=== PATIENT | female | born 1975 | race Caucasian/White ===

== ENCOUNTER 2017-04-14 02:27 | Outpatient (CLI) | payer BC ==
[~2017-04-14 02:27] MED LIST: ONDA4TAB6 PO; PHEN-873 PO
== END 2017-04-14 23:59 | disposition home or self-care (01) ==
LOC: DIABETIC 02:27
PROVIDERS: ATTEND Specialist
DX: E11.9 Type 2 diabetes mellitus without complications (principal)
CPT/HCPCS: G0108

== ENCOUNTER 2017-07-18 02:38 | Outpatient (CLI) | payer BC | END 2017-07-18 23:59 | disposition home or self-care (01) | LOC: DIABETIC 02:38 | PROVIDERS: ATTEND Specialist | DX: E11.9 Type 2 diabetes mellitus without complications (principal) | CPT/HCPCS: G0108 ==

== ENCOUNTER 2017-10-17 01:28 | Outpatient (CLI) | payer BC | END 2017-10-17 23:59 | disposition home or self-care (01) | LOC: DIABETIC 01:28 | PROVIDERS: ATTEND Specialist | DX: E11.9 Type 2 diabetes mellitus without complications (principal) | CPT/HCPCS: G0108 ==

== ENCOUNTER 2018-01-09 02:23 | Outpatient (CLI) | payer BC ==
[~2018-01-09 02:23] MED LIST changes: +PHEN-786 PO; -PHEN-873 PO
== END 2018-01-09 23:59 | disposition home or self-care (01) ==
LOC: DIABETIC 02:23
PROVIDERS: ATTEND Specialist
DX: E11.9 Type 2 diabetes mellitus without complications (principal); I10 Essential (primary) hypertension; Z88.0 Allergy status to penicillin
CPT/HCPCS: G0108

== ENCOUNTER 2018-05-10 03:31 | Outpatient (CLI) | payer BC | END 2018-05-10 23:59 | disposition home or self-care (01) | LOC: DIABETIC 03:31 | PROVIDERS: ATTEND Specialist | DX: E11.9 Type 2 diabetes mellitus without complications (principal); I10 Essential (primary) hypertension; Z88.0 Allergy status to penicillin | CPT/HCPCS: G0108 ==

== ENCOUNTER 2018-06-21 01:41 | Outpatient (CLI) | payer BC | END 2018-06-21 23:59 | disposition home or self-care (01) | LOC: DIABETIC 01:41 | PROVIDERS: ATTEND Specialist | DX: E11.65 Type 2 diabetes mellitus with hyperglycemia (principal); Z88.0 Allergy status to penicillin; Z79.899 Other long term (current) drug therapy | CPT/HCPCS: G0108 ==

== ENCOUNTER 2018-08-08 02:35 | Outpatient (CLI) | payer BC | END 2018-08-08 23:59 | disposition home or self-care (01) | LOC: DIABETIC 02:35 | PROVIDERS: ATTEND Specialist | DX: E11.65 Type 2 diabetes mellitus with hyperglycemia (principal); I10 Essential (primary) hypertension; Z88.0 Allergy status to penicillin; Z79.84 Long term (current) use of oral hypoglycemic drugs; Z79.4 Long term (current) use of insulin | CPT/HCPCS: G0108 ==

== ENCOUNTER 2018-12-06 04:47 | Outpatient (CLI) | payer BC | END 2018-12-06 23:59 | disposition home or self-care (01) | LOC: DIABETIC 04:47 | PROVIDERS: ATTEND Specialist | DX: E11.65 Type 2 diabetes mellitus with hyperglycemia (principal); I10 Essential (primary) hypertension; Z88.0 Allergy status to penicillin; Z79.899 Other long term (current) drug therapy; Z79.84 Long term (current) use of oral hypoglycemic drugs | CPT/HCPCS: G0108 ==

== ENCOUNTER 2020-08-17 13:07 | Emergency (ER) | payer BC ==
[~2020-08-17] VITALS: Ht 165.1 cm; Wt 84.4 kg
[2020-08-17 14:44] LABS: URINE HCG NEGATIVE (NEG)
[2020-08-17 14:45] LABS: BASOPHILS # (AUTO) 0.1 X10'3 (0-0.2); BASOPHILS % (AUTO) 0.6 % (0-1); EOSINOPHILS # (AUTO) 0.1 X10'3 (0-0.9); HEMATOCRIT 37.6 % (35.0-45.0); HEMOGLOBIN 12.8 g/dl (12.0-16.0); LYMPHOCYTES # (AUTO) 1.6 X10'3 (1.1-4.8); MEAN CORPUSCULAR HEMOGLOBIN 32.8 PG (27.0-31.0); MEAN CORPUSCULAR VOLUME 96.3 FL (78-98); MEAN PLATELET VOLUME 7.5 FL (7.4-10.4); MONOCYTES # (AUTO) 0.7 X10'3 (0-0.9); NEUTROPHILS # (AUTO) 5.8 X10'3 (1.8-7.7); NEUTROPHILS % (AUTO) 70.4 % (42-75); PLATELET COUNT 294 X10'3 (140-440); RED BLOOD COUNT 3.91 X10'6 (4.20-5.60); RED CELL DISTRIBUTION WIDTH 12.6 % (11.5-14.5); WHITE BLOOD COUNT 8.2 X10'3 (4.5-11.0)
[2020-08-17 14:53] LABS: CLARITY,URINE CLOUDY (Clear); COLOR,URINE STRAW (Yellow); GLUCOSE, URINE >=1000 mg/dl (Neg); KETONES,URINE TRACE mg/dl (Neg); LEUKOCYTE ESTERASE ,URINE NEGATIVE (Neg); NITRITES, URINE NEGATIVE (Neg); OCCULT BLOOD,URINE SMALL (Neg); PH,URINE 5.5 (4.8-8.0); PROTEIN,URINE 30 mg/dl (Neg); UROBILINOGEN,URINE 0.2 E.U/dL (0.2-1.0)
[2020-08-17 14:54] LABS: UA COLLECTION TYPE CLN CATCH MIDSTREAM
[2020-08-17 14:59] LABS: ALANINE AMINOTRANSFERASE 35 U/L (12-78); ALBUMIN 3.1 G/DL (3.4-5.0); ALBUMIN/GLOBULIN RATIO 0.7 (1.1-1.5); ALKALINE PHOSPHATASE 43 IU/L (46-116); ANION GAP 17 (8-16); ASPARTATE AMINO TRANSFERASE 36 U/L (10-37); BILIRUBIN,TOTAL 0.6 MG/DL (0.1-1.0); BLOOD UREA NITROGEN 29 MG/DL (7-18); BUN/CREATININE RATIO 10.1 (6.6-38.0); CALCIUM 9.5 MG/DL (8.5-10.1); CHLORIDE 96 MMOL/L (99-107); CREATININE 2.87 MG/DL (0.40-0.90); GLUCOSE 298 MG/DL (70-104); LIPASE 137 U/L (73-393); POTASSIUM 3.8 MMOL/L (3.5-5.1); SODIUM 133 MMOL/L (135-145); TOTAL CARBON DIOXIDE 19.8 MMOL/L (24-32); TOTAL PROTEIN 7.8 G/DL (6.4-8.2); eGFR 18 ML/MIN
[2020-08-17 15:11] LABS: SQUAMOUS EPITHELIAL CELL,UR MODERATE /LPF (FEW)
[2020-08-17 15:14] LABS: BACTERIA,URINE FEW /HPF (Neg); WAXY CASTS,URINE 0-3 /LPF (NEGATIVE); WBC,URINE 0-4 /HPF (0-4)
[2020-08-17 15:15] LABS: AMORPHOUS URATES 4+; MUCUS STRANDS FEW /LPF (Neg); RBC,URINE NONE SEEN /HPF (0-2)
[2020-08-17] MEDS ORDERED: normal saline 1000ML IV soln IVB ONE (16:00)
[2020-08-17] MEDS ORDERED: famotidine/PF 10 mg/ml inj IV ONE (16:55)
[2020-08-17] MEDS ORDERED: sucralfate 1gm/10ml UD suspension PO STA (16:56)
[2020-08-17] MEDS ORDERED: mag hydrox/Alum hydrox/simeth 30ml oral suspension PO ONE (17:00)
[2020-08-17] MEDS ORDERED: LIDOcaine Viscous 15ml cup MM ONE (17:00)
[2020-08-17 18:31] VITALS: BP 142/96
== END 2020-08-17 18:43 | disposition home or self-care (01) ==
LOC: ER 13:08
DX: N17.9 Acute kidney failure, unspecified (principal); E11.65 Type 2 diabetes mellitus with hyperglycemia; R10.13 Epigastric pain; E78.00 Pure hypercholesterolemia, unspecified; I10 Essential (primary) hypertension; Z79.4 Long term (current) use of insulin; Z87.440 Personal history of urinary (tract) infections; Z79.899 Other long term (current) drug therapy; Z88.0 Allergy status to penicillin; Z90.710 Acquired absence of both cervix and uterus
CPT/HCPCS: 36415; 71045; 80053; 81001; 81025; 82948; 83690; 84484; 85025; 93005; 93975; 96361; 96374; 99285; J3490; J7030

== ENCOUNTER 2020-08-19 11:42 | Inpatient (IN) | payer BC ==
[~2020-08-19] VITALS: Ht 165.1 cm; Wt 85.5 kg
[2020-08-19 12:34] LABS: ALANINE AMINOTRANSFERASE 23 U/L (12-78); ALBUMIN 2.9 G/DL (3.4-5.0); ALBUMIN/GLOBULIN RATIO 0.7 (1.1-1.5); ALKALINE PHOSPHATASE 43 IU/L (46-116); ANION GAP 17 (8-16); ASPARTATE AMINO TRANSFERASE 31 U/L (10-37); BILIRUBIN,TOTAL 0.5 MG/DL (0.1-1.0); BLOOD UREA NITROGEN 29 MG/DL (7-18); BUN/CREATININE RATIO 7.9 (6.6-38.0); CALCIUM 9.5 MG/DL (8.5-10.1); CHLORIDE 101 MMOL/L (99-107); CREATININE 3.65 MG/DL (0.40-0.90); GLUCOSE 285 MG/DL (70-104); POTASSIUM 3.8 MMOL/L (3.5-5.1); SODIUM 137 MMOL/L (135-145); TOTAL CARBON DIOXIDE 18.7 MMOL/L (24-32); TOTAL PROTEIN 7.3 G/DL (6.4-8.2); eGFR 13 ML/MIN
[2020-08-19 12:44] LABS: BASOPHILS % (AUTO) 0.5 % (0-1); EOSINOPHILS # (AUTO) 0.1 X10'3 (0-0.9); HEMATOCRIT 35.9 % (35.0-45.0); HEMOGLOBIN 12.4 g/dl (12.0-16.0); LYMPHOCYTES # (AUTO) 1.6 X10'3 (1.1-4.8); LYMPHOCYTES % (AUTO) 21.8 % (21-51); MEAN CORPUSCULAR HEMOGLOBIN 32.9 PG (27.0-31.0); MEAN CORPUSCULAR HGB CONC 34.4 g/dL (33.0-36.5); MEAN CORPUSCULAR VOLUME 95.7 FL (78-98); MEAN PLATELET VOLUME 7.7 FL (7.4-10.4); MONOCYTES # (AUTO) 0.8 X10'3 (0-0.9); NEUTROPHILS # (AUTO) 4.8 X10'3 (1.8-7.7); NEUTROPHILS % (AUTO) 65.7 % (42-75); PLATELET COUNT 315 X10'3 (140-440); RED BLOOD COUNT 3.75 X10'6 (4.20-5.60); RED CELL DISTRIBUTION WIDTH 12.5 % (11.5-14.5); WHITE BLOOD COUNT 7.3 X10'3 (4.5-11.0)
[2020-08-19] MEDS ORDERED: normal saline 1000ML IV soln IVB ONE (13:55)
[2020-08-19] MEDS ORDERED: insulin regular, human U-100 3ml vial - multi-dose IV ONE (13:55)
[2020-08-19 14:25] LABS: URINE HCG NEGATIVE (NEG)
[2020-08-19 14:27] LABS: CLARITY,URINE SLIGHTLY CLOUDY (Clear); COLOR,URINE STRAW (Yellow); GLUCOSE, URINE >=1000 mg/dl (Neg); KETONES,URINE NEGATIVE (Neg); LEUKOCYTE ESTERASE ,URINE NEGATIVE (Neg); NITRITES, URINE NEGATIVE (Neg); OCCULT BLOOD,URINE SMALL (Neg); PH,URINE 5.5 (4.8-8.0); PROTEIN,URINE 30 mg/dl (Neg); UROBILINOGEN,URINE 0.2 E.U/dL (0.2-1.0)
[2020-08-19 14:30] LABS: UA COLLECTION TYPE VOIDED
[2020-08-19 14:34] LABS: C-REACTIVE PROTEIN 1.4 MG/DL (0.0-0.5); MAGNESIUM 2.1 MG/DL (1.5-2.4); PHOSPHORUS 4.9 MG/DL (2.3-4.5)
[2020-08-19 14:40] LABS: WBC,URINE 0-4 /HPF (0-4)
[2020-08-19 14:41] LABS: BACTERIA,URINE 1+ /HPF (Neg); RBC,URINE 0-2 /HPF (0-2)
[2020-08-19 14:42] LABS: SQUAMOUS EPITHELIAL CELL,UR MODERATE /LPF (FEW)
[2020-08-19 14:45] LABS: AMORPHOUS URATES 1+
[2020-08-19] MEDS ORDERED: magnesium Cl slow-release 64mg tablet PO PRN (16:45)
[2020-08-19] MEDS ORDERED: magnesium 2GM in 50ml NS 50 ML IV PRN (16:45)
[2020-08-19] MEDS: normal saline 1000ml 1,000 ML IV SCH (16:45)
[2020-08-19] MEDS ORDERED: ondansetron/PF 4mg/2ml inj IV PRN (16:45)
[2020-08-19] MEDS ORDERED: potassium Cl 40MEQ/1/2NS 520ml 520 ML IV PRN ×2 (16:45)
[2020-08-19] MEDS ORDERED: magnesium 4gm in 100ml NS 100 ML IV PRN (16:45)
[2020-08-19] MEDS ORDERED: acetaminophen 325mg tablet PO PRN (16:45)
[2020-08-19] MEDS ORDERED: potassium Cl 20 mEq SR tablet PO PRN (16:45)
[2020-08-19] MEDS ORDERED: ROSU40TA PO (17:09)
[2020-08-19] MEDS ORDERED: INSU300I3 SUBCUT (17:09)
[2020-08-19] MEDS ORDERED: DULA1.5P SQ (17:09)
[2020-08-19] MEDS ORDERED: LISI-790 PO (17:09)
[2020-08-19] MEDS ORDERED: NORE1TAB28 PO (17:09)
[2020-08-19] MEDS ORDERED: AMA1T PO (17:09)
[2020-08-19] MEDS ORDERED: DAPA10TA PO (17:09)
[2020-08-19] MEDS ORDERED: GABA-530 PO (17:09)
[2020-08-19] MEDS ORDERED: dextrose 50%-water 50ml dispensing syringe IV PRN ×2 (17:20)
[2020-08-19] MEDS ORDERED: glucagon, human recombinant 1mg kit SUBCUT PRN (17:20)
[2020-08-19] MEDS ORDERED: dextrose ORAL solution 15 GM/59 ML bottle PO PRN ×2 (17:20)
[2020-08-19] MEDS ORDERED: MESSAGE TO PHARMACY PO ONE (17:20)
[2020-08-19 17:45] LABS: HEMOGLOBIN A1C 7.1 % (4.5-6.2)
[2020-08-19 17:45] LABS: LACTATE DEHYDROGENASE 188 U/L (81-234)
[2020-08-19 18:04] LABS: RHEUM FACTOR QUAL REFLEX TITER NEGATIVE (Neg)
[2020-08-19 19:29] LABS: UA EOSINOPHILS NO EOS /HPF
[2020-08-19] MEDS: K and/or MAG REPLACEMENT MC SCH (20:00)
--- NOTE | 2020-08-19 20:48 | NUR ---
Patient in room ED [id number]. I have received report from Jordon KING and had the opportunity to ask questions and assume patient care.
[2020-08-19 21:15] VITALS: BP 132/78
[2020-08-19] MEDS: insulin glargine (Lantus) pen - multi-dose SQ SCH (22:05)
[2020-08-19] MEDS ORDERED: diphenhydrAMINE 25mg capsule PO PRN (22:45)
[2020-08-20] MEDS: normal saline 1000ml 1,000 ML IV SCH ×3 (02:45→19:39)
--- NOTE | 2020-08-20 06:27 | NUR ---
Problems reprioritized. Patient report given, questions answered & plan of care reviewed with Aurora KING.
[2020-08-20 06:46] VITALS: BP 117/71
--- NOTE | 2020-08-20 07:23 | NUR ---
Patient in room ORTHO 4015. I have received report from terrell mendoza and had the opportunity to ask questions and assume patient care.
[2020-08-20 07:39] LABS: BASOPHILS % (AUTO) 0.6 % (0-1); EOSINOPHILS # (AUTO) 0.1 X10'3 (0-0.9); EOSINOPHILS % (AUTO) 1.8 % (0-6); HEMATOCRIT 31.5 % (35.0-45.0); HEMOGLOBIN 11.1 g/dl (12.0-16.0); LYMPHOCYTES % (AUTO) 28.4 % (21-51); MEAN CORPUSCULAR HEMOGLOBIN 33.9 PG (27.0-31.0); MEAN CORPUSCULAR HGB CONC 35.3 g/dL (33.0-36.5); MEAN CORPUSCULAR VOLUME 96.1 FL (78-98); MEAN PLATELET VOLUME 7.6 FL (7.4-10.4); MONOCYTES # (AUTO) 0.7 X10'3 (0-0.9); MONOCYTES % (AUTO) 9.7 % (2-12); NEUTROPHILS # (AUTO) 4.1 X10'3 (1.8-7.7); NEUTROPHILS % (AUTO) 59.5 % (42-75); PLATELET COUNT 272 X10'3 (140-440); RED BLOOD COUNT 3.28 X10'6 (4.20-5.60); RED CELL DISTRIBUTION WIDTH 12.3 % (11.5-14.5); WHITE BLOOD COUNT 6.9 X10'3 (4.5-11.0)
[2020-08-20] MEDS: atorvastatin 20mg tablet PO SCH (07:53)
[2020-08-20 07:56] LABS: ALBUMIN 2.4 G/DL (3.4-5.0); ANION GAP 13 (8-16); BLOOD UREA NITROGEN 29 MG/DL (7-18); BUN/CREATININE RATIO 8.3 (6.6-38.0); CALCIUM 8.6 MG/DL (8.5-10.1); CHLORIDE 106 MMOL/L (99-107); GLUCOSE 165 MG/DL (70-104); LACTATE DEHYDROGENASE 149 U/L (81-234); POTASSIUM 3.6 MMOL/L (3.5-5.1); SODIUM 139 MMOL/L (135-145); TOTAL CARBON DIOXIDE 19.9 MMOL/L (24-32); eGFR 14 ML/MIN
[2020-08-20] MEDS: K and/or MAG REPLACEMENT MC SCH ×2 (08:00→19:33)
[2020-08-20 08:10] VITALS: BP 120/62
[2020-08-20 08:40] LABS: RHEUM FACTOR QUAL REFLEX TITER NEGATIVE (Neg)
[2020-08-20] MEDS: insulin Lispro (HumaLOG) vial - multi-dose SQ SCH ×3 (08:47→19:38)
[2020-08-20 10:00] VITALS: BP 130/78
[2020-08-20] MEDS ORDERED: LIDOcaine 2% 10ml TOPICAL JELLY (Urojet) TP ONE (12:20)
--- NOTE | 2020-08-20 15:24 | NUR ---
Malnutrition/DM Consults: Pt admit DX DEB and hyperglycemia GLU 285 hx T2DM A1C 7.1; pt told to come in to ER by optical effects camera operator for elevated GLU per EMR. Pt takes farxiga, trulicity, glimepiride, and trujeo at home and was following DM diet as well as taking meds per Rx KILN PULLER per ER note. Pt seen by RD reports follows optical effects camera operator and PCP regularly, used to see CDE at [facility] prior to program closing, takes meds per Rx, and has no questions/concerns regarding DM diet guidelines at this time. Written DM ed w/ RD contact information given to pt. RD encouraged pt to contact dietitian's office if further questions/concerns. Pt appears WD/WN, has normal strength, no edema/wounds, and PO 100% first meal this admit meeting needs. Does not meet minimum malnutrition criteria at this time. Addendum: 08/20/20 at [address] Amended: Links added.
[2020-08-20 18:00] VITALS: BP 131/84
--- NOTE | 2020-08-20 18:31 | NUR ---
Problems reprioritized. Patient report given, questions answered & plan of care reviewed with LESLIE KING.
--- NOTE | 2020-08-20 18:45 | NUR ---
Patient in room ORTHO 4015. I have received report from Aurora KING and had the opportunity to ask questions and assume patient care.
[2020-08-20 22:00] VITALS: BP 114/72
[2020-08-20] MEDS: LORazepam 1 MG tablet PO PRN (22:00)
[2020-08-20] MEDS: insulin glargine (Lantus) pen - multi-dose SQ SCH (22:04)
[2020-08-21] MEDS: normal saline 1000ml 1,000 ML IV SCH ×2 (05:22→15:58)
[2020-08-21 06:00] VITALS: BP 120/79
--- NOTE | 2020-08-21 06:14 | NUR ---
Problems reprioritized. Patient report given, questions answered & plan of care reviewed with Faustina KING and Lara KING.
[2020-08-21 07:58] LABS: BASOPHILS % (AUTO) 0.5 % (0-1); EOSINOPHILS # (AUTO) 0.1 X10'3 (0-0.9); EOSINOPHILS % (AUTO) 1.9 % (0-6); HEMATOCRIT 31.8 % (35.0-45.0); HEMOGLOBIN 10.9 g/dl (12.0-16.0); LYMPHOCYTES # (AUTO) 1.4 X10'3 (1.1-4.8); LYMPHOCYTES % (AUTO) 25.3 % (21-51); MEAN CORPUSCULAR HGB CONC 34.5 g/dL (33.0-36.5); MEAN CORPUSCULAR VOLUME 95.8 FL (78-98); MEAN PLATELET VOLUME 7.7 FL (7.4-10.4); MONOCYTES # (AUTO) 0.6 X10'3 (0-0.9); MONOCYTES % (AUTO) 10.6 % (2-12); NEUTROPHILS # (AUTO) 3.5 X10'3 (1.8-7.7); NEUTROPHILS % (AUTO) 61.7 % (42-75); PLATELET COUNT 264 X10'3 (140-440); RED BLOOD COUNT 3.31 X10'6 (4.20-5.60); RED CELL DISTRIBUTION WIDTH 12.6 % (11.5-14.5); WHITE BLOOD COUNT 5.6 X10'3 (4.5-11.0)
[2020-08-21] MEDS: K and/or MAG REPLACEMENT MC SCH ×2 (08:00→19:20)
[2020-08-21 08:08] LABS: ALBUMIN 2.4 G/DL (3.4-5.0); ANION GAP 12 (8-16); BLOOD UREA NITROGEN 29 MG/DL (7-18); BUN/CREATININE RATIO 8.5 (6.6-38.0); CALCIUM 8.5 MG/DL (8.5-10.1); CHLORIDE 108 MMOL/L (99-107); CREATININE 3.43 MG/DL (0.40-0.90); GLUCOSE 159 MG/DL (70-104); MAGNESIUM 1.9 MG/DL (1.5-2.4); POTASSIUM 3.6 MMOL/L (3.5-5.1); SODIUM 142 MMOL/L (135-145); TOTAL CARBON DIOXIDE 22.4 MMOL/L (24-32); eGFR 14 ML/MIN
[2020-08-21] MEDS: atorvastatin 20mg tablet PO SCH (08:10)
[2020-08-21 08:15] VITALS: BP 134/83
[2020-08-21] MEDS: insulin Lispro (HumaLOG) vial - multi-dose SQ SCH ×4 (08:17→21:33)
[2020-08-21 09:23] LABS: HBSAG SCREEN Negative (Negative); HEPATITIS C ANTIBODY <0.1 s/co ratio (0.0-0.9)
[2020-08-21 10:38] VITALS: BP 138/95
[2020-08-21 18:00] VITALS: BP 144/92
--- NOTE | 2020-08-21 18:45 | NUR ---
Patient in room ORTHO 4015. I have received report from Faustina KING and had the opportunity to ask questions and assume patient care.
[2020-08-21 20:00] VITALS: BP_SYST 123; BP_SYST 128; BP_DIAS 73; BP_DIAS 84; BP_DIAS 90
[2020-08-21] MEDS: LORazepam 1 MG tablet PO PRN (21:28)
[2020-08-21] MEDS: insulin glargine (Lantus) pen - multi-dose SQ SCH (21:32)
[2020-08-21 22:00] VITALS: BP 125/78
[2020-08-22] MEDS: normal saline 1000ml 1,000 ML IV SCH ×3 (04:59→19:20)
[2020-08-22 06:00] VITALS: BP 110/71
--- NOTE | 2020-08-22 06:37 | NUR ---
Problems reprioritized. Patient report given, questions answered & plan of care reviewed with Faustina KING.
[2020-08-22 06:49] LABS: BASOPHILS % (AUTO) 0.4 % (0-1); EOSINOPHILS # (AUTO) 0.1 X10'3 (0-0.9); EOSINOPHILS % (AUTO) 1.9 % (0-6); HEMATOCRIT 32.4 % (35.0-45.0); HEMOGLOBIN 11.5 g/dl (12.0-16.0); LYMPHOCYTES # (AUTO) 1.9 X10'3 (1.1-4.8); LYMPHOCYTES % (AUTO) 30.3 % (21-51); MEAN CORPUSCULAR HEMOGLOBIN 34.2 PG (27.0-31.0); MEAN CORPUSCULAR HGB CONC 35.3 g/dL (33.0-36.5); MEAN CORPUSCULAR VOLUME 96.9 FL (78-98); MEAN PLATELET VOLUME 7.8 FL (7.4-10.4); MONOCYTES # (AUTO) 0.6 X10'3 (0-0.9); MONOCYTES % (AUTO) 9.8 % (2-12); NEUTROPHILS # (AUTO) 3.6 X10'3 (1.8-7.7); NEUTROPHILS % (AUTO) 57.6 % (42-75); PLATELET COUNT 310 X10'3 (140-440); RED BLOOD COUNT 3.35 X10'6 (4.20-5.60); WHITE BLOOD COUNT 6.2 X10'3 (4.5-11.0)
[2020-08-22 06:56] LABS: ALBUMIN 2.5 G/DL (3.4-5.0); ANION GAP 12 (8-16); BLOOD UREA NITROGEN 27 MG/DL (7-18); BUN/CREATININE RATIO 8.8 (6.6-38.0); CALCIUM 8.6 MG/DL (8.5-10.1); CHLORIDE 107 MMOL/L (99-107); CREATININE 3.06 MG/DL (0.40-0.90); GLUCOSE 168 MG/DL (70-104); MAGNESIUM 1.7 MG/DL (1.5-2.4); POTASSIUM 3.4 MMOL/L (3.5-5.1); SODIUM 141 MMOL/L (135-145); TOTAL CARBON DIOXIDE 21.9 MMOL/L (24-32); eGFR 16 ML/MIN
[2020-08-22] MEDS: atorvastatin 20mg tablet PO SCH (07:59)
[2020-08-22] MEDS: K and/or MAG REPLACEMENT MC SCH ×2 (08:00→20:59)
[2020-08-22] MEDS: insulin Lispro (HumaLOG) vial - multi-dose SQ SCH ×3 (08:05→18:47)
[2020-08-22 10:00] VITALS: BP_SYST 138; BP_SYST 140; BP_DIAS 70; BP_DIAS 73; BP_DIAS 78; BP_DIAS 97
[2020-08-22] MEDS: potassium Cl 20 mEq SR tablet PO PRN ×2 (12:13→16:15)
[2020-08-22 18:00] VITALS: BP 149/96
[2020-08-22] MEDS ORDERED: potassium Cl 40MEQ/1/2NS 520ml 520 ML IV PRN (19:50)
[2020-08-22] MEDS ORDERED: potassium Cl 20 mEq SR tablet PO PRN ×2 (19:50)
[2020-08-22] MEDS ORDERED: magnesium Cl slow-release 64mg tablet PO PRN (19:50)
[2020-08-22] MEDS ORDERED: magnesium 4gm in 100ml NS 100 ML IV PRN (19:50)
[2020-08-22 20:00] VITALS: BP_SYST 137; BP_SYST 146; BP_SYST 153; BP_DIAS 105; BP_DIAS 85; BP_DIAS 95
[2020-08-22] MEDS: insulin glargine (Lantus) pen - multi-dose SQ SCH (21:09)
[2020-08-22] MEDS: LORazepam 1 MG tablet PO PRN (21:10)
[2020-08-22 22:00] VITALS: BP 137/85
[2020-08-23] MEDS: normal saline 1000ml 1,000 ML IV SCH ×2 (01:20→07:46)
[2020-08-23 06:44] LABS: BASOPHILS % (AUTO) 0.5 % (0-1); EOSINOPHILS # (AUTO) 0.1 X10'3 (0-0.9); EOSINOPHILS % (AUTO) 1.7 % (0-6); HEMOGLOBIN 9.9 g/dl (12.0-16.0); LYMPHOCYTES # (AUTO) 1.6 X10'3 (1.1-4.8); LYMPHOCYTES % (AUTO) 26.1 % (21-51); MEAN CORPUSCULAR HEMOGLOBIN 33.4 PG (27.0-31.0); MEAN CORPUSCULAR HGB CONC 34.3 g/dL (33.0-36.5); MEAN CORPUSCULAR VOLUME 97.4 FL (78-98); MEAN PLATELET VOLUME 7.8 FL (7.4-10.4); MONOCYTES # (AUTO) 0.8 X10'3 (0-0.9); MONOCYTES % (AUTO) 11.9 % (2-12); NEUTROPHILS # (AUTO) 3.8 X10'3 (1.8-7.7); NEUTROPHILS % (AUTO) 59.8 % (42-75); PLATELET COUNT 285 X10'3 (140-440); RED BLOOD COUNT 2.98 X10'6 (4.20-5.60); RED CELL DISTRIBUTION WIDTH 12.2 % (11.5-14.5); WHITE BLOOD COUNT 6.3 X10'3 (4.5-11.0)
[2020-08-23 06:46] LABS: ALBUMIN 2.2 G/DL (3.4-5.0); ANION GAP 11 (8-16); BLOOD UREA NITROGEN 22 MG/DL (7-18); BUN/CREATININE RATIO 9.1 (6.6-38.0); CALCIUM 7.6 MG/DL (8.5-10.1); CHLORIDE 110 MMOL/L (99-107); CREATININE 2.43 MG/DL (0.40-0.90); GLUCOSE 169 MG/DL (70-104); MAGNESIUM 1.5 MG/DL (1.5-2.4); POTASSIUM 3.7 MMOL/L (3.5-5.1); SODIUM 142 MMOL/L (135-145); TOTAL CARBON DIOXIDE 20.9 MMOL/L (24-32); eGFR 21 ML/MIN
--- NOTE | 2020-08-23 06:52 | NUR ---
Patient in room ORTHO 4015. I have received report from Marlen KING and had the opportunity to ask questions and assume patient care.
[2020-08-23] MEDS: atorvastatin 20mg tablet PO SCH (07:42)
[2020-08-23] MEDS: K and/or MAG REPLACEMENT MC SCH (08:04)
[2020-08-23] MEDS: insulin Lispro (HumaLOG) vial - multi-dose SQ SCH (08:47)
--- NOTE | 2020-08-23 11:28 | NUR ---
Charge nurse Gladys went over discharge instructions with this patient.
== END 2020-08-23 09:20 | disposition home or self-care (01) | DRG 637 ==
LOC: ER 11:42 → ED HOLD 16:41 → ORTHO 4S 21:00
PROVIDERS: ADMIT Internal Medicine; ATTEND Internal Medicine
DX: E11.65 Type 2 diabetes mellitus with hyperglycemia (principal); N17.0 Acute kidney failure with tubular necrosis; E87.2 Acidosis; I10 Essential (primary) hypertension; E78.5 Hyperlipidemia, unspecified; E78.00 Pure hypercholesterolemia, unspecified; G62.9 Polyneuropathy, unspecified; E66.9 Obesity, unspecified; Z88.0 Allergy status to penicillin; Z79.899 Other long term (current) drug therapy; Z90.710 Acquired absence of both cervix and uterus; Z68.31 Body mass index [BMI] 31.0-31.9, adult; Z87.440 Personal history of urinary (tract) infections
CPT/HCPCS: 36415; 76770; 80048; 80053; 81001; 81025; 82570; 82948; 83036; 83615; 83735; 84100; 84145; 84156; 84300; 85025; 85651; 86038; 86060; 86140; 86160; 86430; 86592; 86803; 87081; 87207; 87340; 96374; 99285; G0378; J1815; J7030; Q0163

== ENCOUNTER 2021-04-27 07:36 | Emergency (ER) | payer BC ==
[~2021-04-27] VITALS: Ht 165.1 cm; Wt 100.0 kg
[~2021-04-27 07:36] MED LIST changes: +AMA1T PO; +NORE1TAB28 PO; -ONDA4TAB6 PO; -PHEN-786 PO; +ROSU40TA PO
[2021-04-27] MEDS ORDERED: normal saline 1000ML IV soln IVB ONE (07:50)
[2021-04-27] MEDS ORDERED: morphine 4 MG/ML inj SYRINge IV PRN (07:50)
[2021-04-27] MEDS ORDERED: ondansetron/PF 4mg/2ml inj IV ONE (07:50)
[2021-04-27 08:21] LABS: URINE HCG NEGATIVE (NEG)
[2021-04-27 08:22] LABS: BASOPHILS % (AUTO) 0.5 % (0-1); EOSINOPHILS # (AUTO) 0.1 X10'3 (0-0.9); EOSINOPHILS % (AUTO) 1.7 % (0-6); HEMATOCRIT 40.9 % (35.0-45.0); HEMOGLOBIN 13.8 g/dl (12.0-16.0); LYMPHOCYTES # (AUTO) 1.8 X10'3 (1.1-4.8); LYMPHOCYTES % (AUTO) 20.3 % (21-51); MEAN CORPUSCULAR HGB CONC 33.8 g/dL (33.0-36.5); MEAN CORPUSCULAR VOLUME 94.7 FL (78-98); MEAN PLATELET VOLUME 7.4 FL (7.4-10.4); MONOCYTES # (AUTO) 0.6 X10'3 (0-0.9); MONOCYTES % (AUTO) 6.7 % (2-12); NEUTROPHILS # (AUTO) 6.1 X10'3 (1.8-7.7); NEUTROPHILS % (AUTO) 70.8 % (42-75); PLATELET COUNT 366 X10'3 (140-440); RED BLOOD COUNT 4.32 X10'6 (4.20-5.60); RED CELL DISTRIBUTION WIDTH 12.3 % (11.5-14.5); WHITE BLOOD COUNT 8.6 X10'3 (4.5-11.0)
[2021-04-27 08:33] LABS: ALANINE AMINOTRANSFERASE 62 U/L (12-78); ALBUMIN 3.5 G/DL (3.4-5.0); ALBUMIN/GLOBULIN RATIO 0.9 (1.1-1.5); ALKALINE PHOSPHATASE 63 IU/L (46-116); ANION GAP 9 (8-16); ASPARTATE AMINO TRANSFERASE 65 U/L (10-37); BILIRUBIN,TOTAL 0.4 MG/DL (0.1-1.0); BLOOD UREA NITROGEN 14 MG/DL (7-18); BUN/CREATININE RATIO 18.7 (6.6-38.0); CALCIUM 8.8 MG/DL (8.5-10.1); CHLORIDE 101 MMOL/L (99-107); CREATININE 0.75 MG/DL (0.40-0.90); GLUCOSE 194 MG/DL (70-104); LIPASE < 50 U/L (73-393); SODIUM 137 MMOL/L (135-145); TOTAL CARBON DIOXIDE 27.1 MMOL/L (24-32); TOTAL PROTEIN 7.2 G/DL (6.4-8.2); eGFR 83 ML/MIN
[2021-04-27 08:41] LABS: CLARITY,URINE CLOUDY (Clear); COLOR,URINE YELLOW (Yellow); GLUCOSE, URINE 250 mg/dl (Neg); KETONES,URINE TRACE mg/dl (Neg); LEUKOCYTE ESTERASE ,URINE NEGATIVE (Neg); NITRITES, URINE NEGATIVE (Neg); OCCULT BLOOD,URINE LARGE (Neg); PROTEIN,URINE 30 mg/dl (Neg); UROBILINOGEN,URINE 0.2 E.U/dL (0.2-1.0)
[2021-04-27 08:50] LABS: UA COLLECTION TYPE CLN CATCH MIDSTREAM
[2021-04-27 08:58] LABS: RBC,URINE TNTC /HPF (0-2)
[2021-04-27 09:00] LABS: BACTERIA,URINE 1+ /HPF (Neg); SQUAMOUS EPITHELIAL CELL,UR MODERATE /LPF (FEW); WBC,URINE 0-4 /HPF (0-4)
[2021-04-27 09:01] LABS: AMORPHOUS URATES 3+
[2021-04-27] MEDS ORDERED: HYDROcodone/acetaminophen 10/325mg tab PO ONE (10:45)
[2021-04-27] MEDS ORDERED: HYDR-3972 PO ×2 (10:48)
[2021-04-27] MEDS ORDERED: FLO0.4C PO ×2 (10:50)
[2021-04-27] MEDS ORDERED: INSU100C10 SQ (10:58)
[2021-04-27] MEDS ORDERED: ROSU40TA PO (10:58)
[2021-04-27] MEDS ORDERED: LOP12.5T PO (10:58)
[2021-04-27] MEDS ORDERED: INSU100V9 SQ (10:58)
[2021-04-27] MEDS ORDERED: LOSA50TA3 PO (10:58)
[2021-04-27 11:10] VITALS: BP 122/83
[2021-04-28] MEDS ORDERED: FLO0.4C PO (15:23)
[2021-04-28] MEDS ORDERED: CYCL-1 PO (15:23)
[2021-04-28] MEDS ORDERED: HYDR-3965 PO (15:23)
[2021-04-28] MEDS ORDERED: INSU300I SQ (15:23)
[2021-04-28] MEDS ORDERED: INSU100I45 SQ (15:24)
[2021-04-28] MEDS ORDERED: OXYC-150 PO (17:23)
== END 2021-04-27 11:12 | disposition home or self-care (01) ==
LOC: ER 07:37
DX: N20.2 Calculus of kidney with calculus of ureter (principal); E78.00 Pure hypercholesterolemia, unspecified; I10 Essential (primary) hypertension; E11.9 Type 2 diabetes mellitus without complications; Z87.440 Personal history of urinary (tract) infections; Z90.710 Acquired absence of both cervix and uterus; Z72.89 Other problems related to lifestyle; Z88.0 Allergy status to penicillin; Z79.4 Long term (current) use of insulin; Z79.899 Other long term (current) drug therapy
CPT/HCPCS: 36415; 74176; 80053; 81001; 81025; 83690; 85025; 96361; 96374; 96375; 99284; J2270; J2405; J7030